=== PATIENT | female | born 1995 | race African-American/Black ===

== ENCOUNTER 2018-06-28 21:57 | Emergency (ER) | payer SELFPAY ==
[2018-06-29 01:55] VITALS: BP 113/76
== END 2018-06-29 00:10 | disposition home or self-care (01) ==
LOC: ED 21:57
DX: S00.83XA Contusion of other part of head, initial encounter (principal); S16.1XXA Strain of muscle, fascia and tendon at neck level, initial encounter; V89.2XXA Person injured in unspecified motor-vehicle accident, traffic, initial encounter; Y93.I9 Activity, other involving external motion; Y92.413 State road as the place of occurrence of the external cause; Y99.8 Other external cause status
CPT/HCPCS: J1885; Q0162